=== PATIENT | male | born 1965 | race Caucasian/White ===

== ENCOUNTER 2018-01-31 03:13 | Emergency (ER) | payer MEDICARE ==
--- NOTE | 2018-01-31 03:15 | EDM.PDOC ---
ED HPI GENERAL MEDICAL PROBLEM - General Chief Complaint: Skin Complaint Stated Complaint: [facility] Time Seen by Provider: 01/31/18 03:15 Source of Information: Reports: Patient History Limitations: Reports: No Limitations - History of Present Illness INITIAL COMMENTS - FREE TEXT/NARRATIVE: 62-year-old male arrives in the ED per ambulance from a local gas station worries been hold off for the last 3-4 days. 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 Pilocar is broken at present time being repaired. Therefore is been sitting around the gas station at [facility] for the last 3 days. Patient is a type II diabetic controlled with oral medications and diet. He has chronic dependent edema states he wears compression stockings. He called EMS tonight because of increasing weakness feeling like he could see right anterior right and trouble breathing. He is concerned he may be septic from the lesion that is draining purulent material from his perianal area. Paramedics report that his initial O2 sats were 79% on room air. He was so weak it took 4 of them to get him out of the vehicle where he is sleeping and into the ambulance. He appears drowsy. Initial BP was 106 systolic. This is much lower than his norm. Of note he is afebrile. He apparently is on Coumadin as he has had previous DVT right leg. Onset: Today Onset Date: 01/31/18 Duration: Hour(s): Location: Reports: Chest, Other (Short of breath lightheaded dizzy with visual changes and auditory changes.) Quality: Reports: Other (Generalized weakness) Severity: Severe Improves with: Reports: Other (Feels better since he got oxygen applied and IV fluid bolus.) Worsens with: Reports: Movement Context: Denies: Activity, Exercise, Lifting, Sick Contact, Trauma, Other Associated Symptoms: Reports: Confusion, Cough, Diaphoresis, Loss of Appetite, Malaise, Shortness of Breath, Weakness (Severe generalized weakness. He could' ve got out of the car on his own volition.). 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: Reports: Other (see below) (None.) Perineal Area Pain Score (Numeric/FACES): 7 - Related Data Allergies Allergy/AdvReac Type Severity Reaction Status Date / Time No Known Allergies Allergy Verified 01/31/18 03:20 Home Meds: Home Meds Benazepril HCl [Lotensin] 40 mg PO DAILY 01/31/18 [History] Diltiazem [Dilacor XR] 240 mg PO DAILY 01/31/18 [History] Fenofibrate 54 mg PO DAILY 01/31/18 [History] Gabapentin [Neurontin] 600 mg PO BID 01/31/18 [History] Hydrochlorothiazide 25 mg PO DAILY 01/31/18 [History] Levothyroxine 125 mcg PO DAILY 01/31/18 [History] Nateglinide 120 mg PO BID 01/31/18 [History] Omeprazole 40 mg PO ACBREAKFAST 01/31/18 [History] Pravastatin Sodium 80 mg PO DAILY 01/31/18 [History] Warfarin [Coumadin] 7.5 mg PO DAILY 01/31/18 [History] glipiZIDE [Glucotrol XL] 20 mg PO ACBREAKFAST 01/31/18 [History] metFORMIN [Glucophage XR] 1,000 mg PO BID 01/31/18 [History] traMADol [Ultram] 50 - 100 mg PO BID PRN 01/31/18 [History] Past Medical History Respiratory History: Reports: COPD (Smokes 1-2 packs of cigarettes per day.) Endocrine/Metabolic History: Reports: Diabetes, Type II (Controlled with diet and oral medications.), Obesity/BMI 30+ Social & Family History - Living Situation & Occupation Social History Comment: 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 ED ROS GENERAL - Review of Systems Review Of Systems: See Below Constitutional: Reports: Malaise, Weakness, Fatigue. Denies: Fever, Chills HEENT: Reports: Hearing Loss (I'm in trouble hearing earlier tonight as well. Likely due to hypotension), Vision Change (Blurred vision tonight couldn't focus well.) Respiratory: Reports: Shortness of Breath, Wheezing, Cough. Denies: Pleuritic Chest Pain, Hemoptysis (Coughs up brown sputum once in a while) Cardiovascular: Reports: Blood Pressure Problem, Dyspnea on Exertion (Chronic dependent edema. Wears SAHARA stockings all the time. 3.), Edema. Denies: Chest Pain, Claudication, Lightheadedness, Orthopnea Endocrine: Reports: Fatigue, High Glucose (Nondiabetic doesn't check his sugars all that often) GI/Abdominal: Reports: Constipation (Some issues with constipation) : Reports: Frequency, Other (Nocturia usually 3 or 4 known BPH.) Musculoskeletal: Reports: Back Pain, Joint Pain (Knees hips neck and shoulders at times.) Skin: Reports: Other (Patient has a draining abscess left perianal area. He states that it became painful and swollen about 4 days ago and about 2 days ago it spontaneously erupted and started draining very foul-smelling discharge.) Neurological: Reports: Dizziness (Tonight he was quite dizzy and), Difficulty Walking, Weakness Psychiatric: Reports: No Symptoms Hematologic/Lymphatic: Reports: No Symptoms Immunologic: Reports: No Symptoms ED EXAM, SKIN/RASH Exam: See Below Exam Limited By: Other (Appears very ill. He is afebrile. BP is 93/49 with O2 sats of 90% on 4 L.) General Appearance: Lethargic (Very ill in appearance), Other Eye Exam: Bilateral Eye: Normal Inspection Throat/Mouth: Other Head: Atraumatic, Normocephalic (Tongue and mouth appeared dry tongue is coated) Neck: Normal Inspection, Supple, Limited Range of Motion. No: Carotid Bruit, Lymphadenopathy (L), Lymphadenopathy (R) Respiratory/Chest: Respiratory Distress (He is not tachypnea but he is definitely hypoxic.), Decreased Breath Sounds (Marichuy she is diminished to the lower 20% of lung sigala bilaterally.), Crackles ( and rhonchi throughout all lung sigala I believe in both bases. ), Rhonchi (Diffuse wheezing throughout all lung sigala), Wheezing Cardiovascular: Regular Rate, Rhythm, No Gallop, No Murmur (Heart sounds are difficult to hear because of his overlying wheezes.), No Rub, JVD (3 cm below the angle of the mandible.), Other (Pulses are not palpable below the femorals due to edema.) Peripheral Pulses: 0: Posterior Tibial (L) (No palpable due to severe edema of the lower extremities), Posterior Tibial (R), Dorsalis Pedis (L), Dorsalis Pedis (R) GI/Abdominal: Abnormal Bowel Sounds, Other (Class and bowel sounds grossly obese. This limits ability to palpate any solid organs. Question of ascites.) Rectal (Males) Exam: Other (Patient has a perianal infected process on the left buttock. It is approximately 5 cm in diameter with a necrotic center. It is draining purulent material with smell of anaerobes.) Back Exam: Normal Inspection Extremities: Pedal Edema (4+ pitting edema both lower extremities.) Neurological: Alert, Oriented, CN II-XII Intact, Normal Cognition, Other. No: Normal Gait Psychiatric: Normal Affect Skin: Warm, Dry, Other (Skin lesion left buttock perianally as discussed above. Of note cultures were obtained from the wound both aerobic and anaerobic.) Location, Skin: Perirectal (Left perirectal abscess proximal be 5 cm in diameter with induration increased warmth palpation. The center is becoming ulcerated and necrotic and is losing purulent material with strong anaerobic smell.) EKG INTERPRETATION EKG Date: 01/31/18 Time: 03:30 Rhythm: NSR Rate (Beats/Min): 74 [place]: LAD-Left [place] Deviation (-26) P-Wave: Present QRS: RBBB (Incomplete right bundle branch block) ST-T: Other (Early R-wave transition in V3. Consider septal hypertrophy pattern there is a diffuse early repolarization pattern.) QT: Prolonged (Mildly prolonged) EKG Interpretation Comments: Abnormal ECG Course - Vital Signs Last Recorded V/S: Last Vital Signs Temp 36.6 C 01/31/18 04:00 Pulse 68 01/31/18 04:28 Resp 16 01/31/18 04:28 BP 95/43 L 01/31/18 04:28 Pulse Ox 95 01/31/18 04:28 - Orders/Labs/Meds Orders: Active Orders 24 hr Category Date Time Status Blood Glucose Check, Bedside [RC] ONETIME Care 01/31/18 03:22 Active EKG Documentation Completion [RC] STAT Care 01/31/18 03:21 Active Oxygen Therapy [RC] ASDIRECTED Care 01/31/18 03:22 Active RT Aerosol Therapy [RC] ASDIRECTED Care 01/31/18 03:30 Active Chest 1V Frontal [CR] Stat Exams 01/31/18 03:21 Taken CULTURE ANAEROBIC + SMEAR [RM] Stat Lab 01/31/18 03:35 Received CULTURE BLOOD [BC] Stat Lab 01/31/18 03:40 Received CULTURE BLOOD [BC] Stat Lab 01/31/18 03:53 Received CULTURE WOUND [RM] Stat Lab 01/31/18 03:30 Received Norepinephrine [Levophed] 4 mg Med 01/31/18 04:45 Active Dextrose 5% in Water 246 ml IV TITRATE Sodium Chloride 0.9% [Normal Saline] 1,000 ml Med 01/31/18 03:30 Active IV ASDIRECTED Sodium Chloride 0.9% [Normal Saline] 1,000 ml Med 01/31/18 04:30 Active IV ASDIRECTED Vancomycin 1 gm Med 01/31/18 05:13 Active Sodium Chloride 0.9% [Normal Saline] 250 ml IV ONETIME Vancomycin 1 gm Med 01/31/18 05:13 Active Sodium Chloride 0.9% [Normal Saline] 250 ml IV ONETIME Blood Culture x2 Reflex Set [OM.PC] Stat Oth 01/31/18 03:22 Ordered Medication Orders Sodium Chloride (Normal Saline) 1,000 mls @ 999 mls/hr IV ASDIRECTED TAMRA Last Admin: 01/31/18 03:24 Dose: 999 mls/hr Sodium Chloride (Normal Saline) 1,000 mls @ 999 mls/hr IV ASDIRECTED TAMRA Last Admin: 01/31/18 04:27 Dose: 999 mls/hr Norepinephrine Bitartrate 4 mg (/ Dextrose/Water) 250 mls @ 30 mls/hr IV TITRATE [facility]; Protocol Vancomycin HCl 1 gm/ Sodium (Chloride) 250 mls @ 250 mls/hr IV ONETIME ONE Stop: 01/31/18 06:12 Vancomycin HCl 1 gm/ Sodium (Chloride) 250 mls @ 250 mls/hr IV ONETIME ONE Stop: 01/31/18 06:12 Last Admin: 01/31/18 05:18 Dose: 250 mls/hr Labs: Laboratory Tests 01/31/18 01/31/18 01/31/18 Range/Units 03:22 03:29 03:40 WBC 20.19 H (4.23-9.07) K/mm3 RBC 3.55 L (4.63-6.08) M/mm3 Hgb 10.7 L (13.7-17.5) gm/L Hct 34.0 L (40.1-51.0) % MCV 95.8 H (79.0-92.2) fl MCH 30.1 (25.7-32.2) pg MCHC 31.5 L (32.2-35.5) g/dl RDW Std Deviation 51.0 H (35.1-43.9) fL Plt Count 232 (163-337) K/mm3 MPV 10.9 (9.4-12.3) fl Neutrophils % (Manual) 81 H (40-60) % Band Neutrophils % 0 (0-10) % Lymphocytes % (Manual) 10 L (20-40) % Atypical Lymphs % 0 % Monocytes % (Manual) 9 (2-10) % Eosinophils % (Manual) 0 L (0.8-7.0) % Basophils % (Manual) 0 L (0.2-1.2) Platelet Estimate Adequate RBC Morph Comment Normal PT (9.5-12.1) SECONDS INR D-Dimer, Quantitative (0.19-0.50) mg/L Puncture Site Rt radial ABG pH 7.31 L (7.35-7.45) ABG pCO2 48.1 H (35.0-45.0) mmHg ABG pO2 59.0 L (80.0-100.0) mmHg ABG HCO3 23.6 (22.0-26.0) meq/L ABG O2 Saturation 88.6 L (96.0-97.0) % ABG Base Excess -2.2 L (-2-2.0) Trever Test Positive A-a Gradient 15 mmHg O2 Delivery Device Room air Oxygen Flow Rate 0.0 FiO2 21.00 (21.00-100.00) % Sodium (136-145) mEq/L Potassium (3.5-5.1) mEq/L Chloride (98-107) mEq/L Carbon Dioxide (21-32) mEq/L Anion Gap (5-15) BUN (7-18) mg/dL Creatinine (0.7-1.3) mg/dL Est Cr Clr Drug Dosing mL/min Estimated GFR (MDRD) (>60) mL/min BUN/Creatinine Ratio (14-18) Glucose (80-115) mg/dL POC Glucose 272 H (80-115) mg/dL Lactic Acid (0.4-2.0) mmol/L Calcium (8.5-10.1) mg/dL Magnesium (1.8-2.4) mg/dl Total Bilirubin (0.2-1.0) mg/dL AST (15-37) U/L ALT (16-63) U/L Alkaline Phosphatase (46-116) U/L Troponin I (0.00-0.056) ng/mL C-Reactive Protein (<1.0) mg/dL NT-Pro-B Natriuret Pep (0-125) pg/mL Total Protein (6.4-8.2) g/dl Albumin (3.4-5.0) g/dl Globulin gm/dL Albumin/Globulin Ratio (1-2) TSH 3rd Generation (0.358-3.74) uIU/mL 01/31/18 01/31/18 01/31/18 Range/Units 03:40 03:40 03:40 WBC (4.23-9.07) K/mm3 RBC (4.63-6.08) M/mm3 Hgb (13.7-17.5) gm/L Hct (40.1-51.0) % MCV (79.0-92.2) fl MCH (25.7-32.2) pg MCHC (32.2-35.5) g/dl RDW Std Deviation (35.1-43.9) fL Plt Count (163-337) K/mm3 MPV (9.4-12.3) fl Neutrophils % (Manual) (40-60) % Band Neutrophils % (0-10) % Lymphocytes % (Manual) (20-40) % Atypical Lymphs % % Monocytes % (Manual) (2-10) % Eosinophils % (Manual) (0.8-7.0) % Basophils % (Manual) (0.2-1.2) Platelet Estimate RBC Morph Comment PT 54.9 H* (9.5-12.1) SECONDS INR 5.20 H* D-Dimer, Quantitative (0.19-0.50) mg/L Puncture Site ABG pH (7.35-7.45) ABG pCO2 (35.0-45.0) mmHg ABG pO2 (80.0-100.0) mmHg ABG HCO3 (22.0-26.0) meq/L ABG O2 Saturation (96.0-97.0) % ABG Base Excess (-2-2.0) Trever Test A-a Gradient mmHg O2 Delivery Device Oxygen Flow Rate FiO2 (21.00-100.00) % Sodium 137 (136-145) mEq/L Potassium 5.4 H (3.5-5.1) mEq/L Chloride 102 (98-107) mEq/L Carbon Dioxide 26 (21-32) mEq/L Anion Gap 14.4 (5-15) BUN 50 H (7-18) mg/dL Creatinine 4.9 H (0.7-1.3) mg/dL Est Cr Clr Drug Dosing 16.72 mL/min Estimated GFR (MDRD) 12 (>60) mL/min BUN/Creatinine Ratio 10.2 L (14-18) Glucose 297 H (80-115) mg/dL POC Glucose (80-115) mg/dL Lactic Acid 1.5 (0.4-2.0) mmol/L Calcium 8.1 L (8.5-10.1) mg/dL Magnesium 1.6 L (1.8-2.4) mg/dl Total Bilirubin 0.9 (0.2-1.0) mg/dL AST 29 (15-37) U/L ALT 30 (16-63) U/L Alkaline Phosphatase 167 H (46-116) U/L Troponin I < 0.017 (0.00-0.056) ng/mL C-Reactive Protein 22.5 H* (<1.0) mg/dL NT-Pro-B Natriuret Pep (0-125) pg/mL Total Protein 6.3 L (6.4-8.2) g/dl Albumin 1.9 L (3.4-5.0) g/dl Globulin 4.4 gm/dL Albumin/Globulin Ratio 0.4 L (1-2) TSH 3rd Generation (0.358-3.74) uIU/mL 01/31/18 01/31/18 01/31/18 Range/Units 03:40 03:40 03:40 WBC (4.23-9.07) K/mm3 RBC (4.63-6.08) M/mm3 Hgb (13.7-17.5) gm/L Hct (40.1-51.0) % MCV (79.0-92.2) fl MCH (25.7-32.2) pg MCHC (32.2-35.5) g/dl RDW Std Deviation (35.1-43.9) fL Plt Count (163-337) K/mm3 MPV (9.4-12.3) fl Neutrophils % (Manual) (40-60) % Band Neutrophils % (0-10) % Lymphocytes % (Manual) (20-40) % Atypical Lymphs % % Monocytes % (Manual) (2-10) % Eosinophils % (Manual) (0.8-7.0) % Basophils % (Manual) (0.2-1.2) Platelet Estimate RBC Morph Comment PT (9.5-12.1) SECONDS INR D-Dimer, Quantitative 1.13 H (0.19-0.50) mg/L Puncture Site ABG pH (7.35-7.45) ABG pCO2 (35.0-45.0) mmHg ABG pO2 (80.0-100.0) mmHg ABG HCO3 (22.0-26.0) meq/L ABG O2 Saturation (96.0-97.0) % ABG Base Excess (-2-2.0) Trever Test A-a Gradient mmHg O2 Delivery Device Oxygen Flow Rate FiO2 (21.00-100.00) % Sodium (136-145) mEq/L Potassium (3.5-5.1) mEq/L Chloride (98-107) mEq/L Carbon Dioxide (21-32) mEq/L Anion Gap (5-15) BUN (7-18) mg/dL Creatinine (0.7-1.3) mg/dL Est Cr Clr Drug Dosing mL/min Estimated GFR (MDRD) (>60) mL/min BUN/Creatinine Ratio (14-18) Glucose (80-115) mg/dL POC Glucose (80-115) mg/dL Lactic Acid (0.4-2.0) mmol/L Calcium (8.5-10.1) mg/dL Magnesium (1.8-2.4) mg/dl Total Bilirubin (0.2-1.0) mg/dL AST (15-37) U/L ALT (16-63) U/L Alkaline Phosphatase (46-116) U/L Troponin I (0.00-0.056) ng/mL C-Reactive Protein (<1.0) mg/dL NT-Pro-B Natriuret Pep 2023 H (0-125) pg/mL Total Protein (6.4-8.2) g/dl Albumin (3.4-5.0) g/dl Globulin gm/dL Albumin/Globulin Ratio (1-2) TSH 3rd Generation 2.413 (0.358-3.74) uIU/mL 01/31/18 Range/Units 05:11 WBC (4.23-9.07) K/mm3 RBC (4.63-6.08) M/mm3 Hgb (13.7-17.5) gm/L Hct (40.1-51.0) % MCV (79.0-92.2) fl MCH (25.7-32.2) pg MCHC (32.2-35.5) g/dl RDW Std Deviation (35.1-43.9) fL Plt Count (163-337) K/mm3 MPV (9.4-12.3) fl Neutrophils % (Manual) (40-60) % Band Neutrophils % (0-10) % Lymphocytes % (Manual) (20-40) % Atypical Lymphs % % Monocytes % (Manual) (2-10) % Eosinophils % (Manual) (0.8-7.0) % Basophils % (Manual) (0.2-1.2) Platelet Estimate RBC Morph Comment PT (9.5-12.1) SECONDS INR D-Dimer, Quantitative (0.19-0.50) mg/L Puncture Site Rt radial ABG pH 7.31 L (7.35-7.45) ABG pCO2 45.1 H (35.0-45.0) mmHg ABG pO2 69.0 L (80.0-100.0) mmHg ABG HCO3 21.9 L (22.0-26.0) meq/L ABG O2 Saturation 93.9 L (96.0-97.0) % ABG Base Excess -3.9 L (-2-2.0) Trever Test Positive A-a Gradient 105 mmHg O2 Delivery Device Nasal cannula Oxygen Flow Rate 6.0 FiO2 36.00 (21.00-100.00) % Sodium (136-145) mEq/L Potassium (3.5-5.1) mEq/L Chloride (98-107) mEq/L Carbon Dioxide (21-32) mEq/L Anion Gap (5-15) BUN (7-18) mg/dL Creatinine (0.7-1.3) mg/dL Est Cr Clr Drug Dosing mL/min Estimated GFR (MDRD) (>60) mL/min BUN/Creatinine Ratio (14-18) Glucose (80-115) mg/dL POC Glucose (80-115) mg/dL Lactic Acid (0.4-2.0) mmol/L Calcium (8.5-10.1) mg/dL Magnesium (1.8-2.4) mg/dl Total Bilirubin (0.2-1.0) mg/dL AST (15-37) U/L ALT (16-63) U/L Alkaline Phosphatase (46-116) U/L Troponin I (0.00-0.056) ng/mL C-Reactive Protein (<1.0) mg/dL NT-Pro-B Natriuret Pep (0-125) pg/mL Total Protein (6.4-8.2) g/dl Albumin (3.4-5.0) g/dl Globulin gm/dL Albumin/Globulin Ratio (1-2) TSH 3rd Generation (0.358-3.74) uIU/mL Meds: Medications Generic Name Dose Route Start Last Admin Trade Name Freq PRN Reason Stop Dose Admin Sodium Chloride 1,000 mls @ 999 mls/hr 01/31/18 03:30 01/31/18 03:24 Normal Saline IV 999 mls/hr ASDIRECTED TAMRA Administration Sodium Chloride 1,000 mls @ 999 mls/hr 01/31/18 04:30 01/31/18 04:27 Normal Saline IV 999 mls/hr ASDIRECTED TAMRA Administration Norepinephrine Bitartrate 4 mg 250 mls @ 30 mls/hr 01/31/18 04:45 / Dextrose/Water IV TITRATE TAMRA Protocol 8 MCG/MIN Vancomycin HCl 1 gm/ Sodium 250 mls @ 250 mls/hr 01/31/18 05:13 Chloride IV 01/31/18 06:12 ONETIME ONE Vancomycin HCl 1 gm/ Sodium 250 mls @ 250 mls/hr 01/31/18 05:13 01/31/18 05: 18 Chloride IV 01/31/18 06:12 250 mls/hr ONETIME ONE Administration Discontinued Medications Generic Name Dose Route Start Last Admin Trade Name Freq PRN Reason Stop Dose Admin Albuterol/Ipratropium 3 ml 01/31/18 03:30 01/31/18 03:38 Duoneb 3.0-0.5 Mg/3 Ml NEB 01/31/18 03:31 3 ml ONETIME ONE Administration Clindamycin Phosphate 900 mg/ 106 mls @ 100 mls/hr 01/31/18 03:47 01/31/18 03 :58 Sodium Chloride IV 01/31/18 04:50 100 mls/hr ONETIME ONE Administration Norepinephrine Bitartrate 4 mg 250 mls @ 18.75 mls/hr 01/31/18 04:15 04:43 / Dextrose/Water IV 8 mcg/min TITRATE TAMRA 30 mls/hr Infusion 5 MCG/MIN Vancomycin HCl 2 gm/ Sodium 250 mls @ 250 mls/hr 01/31/18 04:44 Chloride IV 01/31/18 05:43 ONETIME ONE Sodium Chloride Confirm 01/31/18 05:16 01/31/18 05:31 Normal Saline Administered 01/31/18 05:17 Not Given Dose 500 mls @ as directed .ROUTE .STK-MED ONE Metoclopramide HCl 10 mg 01/31/18 04:02 01/31/18 04:11 Reglan IVPUSH 01/31/18 04:03 10 mg ONETIME ONE Administration Vancomycin HCl Confirm 01/31/18 05:16 01/31/18 05:31 Vancocin Administered 01/31/18 05:17 Not Given Dose 2 gm .ROUTE .STK-MED ONE - Radiology Interpretation Free Text/Narrative:: 62-year-old male brought to the ED per ambulance [place] local [place] stop where he has been residing a last 3-4 days. 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 He lives in sleeps in his vehicle. Patient is a type II diabetic poorly controlled. He has chronic severe dependent edema of both lower extremities and wears SAHARA stockings. He reports he can stay in his vehicle for sometime 1618 hrs. per day. He presents to the ED due to dyspnea weakness visual acuity changes and auditory changes i.e. due to hypotension. Paramedics identified him to be hypoxic with O2 sats of 79% on room air. This is likely because he is also hypo-tensive with a BP of 75/44. Is not perfusing his extremities. Cause of shock state is unclear. It is not hemorrhagic. It is either cardiovascular or sepsis in origin. He has a draining perianal abscess on his left buttock cheek which may be the culprit. He is afebrile at present time. Plan he will be treated aggressively. He is likely going to need inotropic support. Will also be started on antibiotic clindamycin 900 mg IV. Oxygen will be utilized at 4-5 L/m. He will have ABGs done as well as blood cultures 2 and cardiac markers and BNP. Given Reglan 10 mg IV for nausea relief. He looks critically ill. - Re-Assessments/Exams Free Text/Narrative Re-Assessment/Exam: 01/31/18 04:02 ABGs have returned and reveal a pH of 7.31 with PCO2 of 48.1 PO2 of 59.This was done on room air? O2 sats were 88%. Apparently he is only 89 % on 4 L/m at this time. BP is low at 72/42. He is therefore going to require inotropic support. Will be started on levo fed at 5 mcg/kg/m. Will be given Reglan 10 mg IV prophylactically for nausea relief. Unclear at this time what is causing his shock state. Cardiogenic versus sepsis without fever. ECG does not show any signs of recent ischemia. Will start him on antibiotic clindamycin 900 mg IV. Zyvox is relatively contraindicated as he is taking tramadol for pain. Is combination lowers seizure threshold and can cause serotonin syndrome. One view chest x-ray done portably shows poor inspiration. Cardiac silhouette is essentially normal. Mildly tortuous thoracic aorta. There is mild hazy infiltrate in the left lingular area which is likely vascular in origin. No pleural effusions Second intravenous line will be required. 01/31/18 04:19 O2 sats are 92% on 6 L. BP is just starting to come up at 86/54. 01/31/18 04:31 O2 sats are up to 94%. BP is now 97/40. This is on Levophed at 5 mcg/kg/m. 01/31/18 04:42 BP remains in the low 90s with sats of 92% on 6 L. Will increase the levophed to 8 mcg/kg/m. 01/31/18 04:47 Labs are starting to come back. White count is markedly elevated at 20.19 with 81% neutrophils and no bands reported. Hemoglobin is mildly low at 10.7 with hematocrit of 34.0. MCV is mildly elevated at 95.8. Platelet count is 232,000. PT is markedly elevated at 54.9. INR is 5.20 i.e. supratherapeutic. D-dimer is 1.13 secondary to infective process. Chemistry shows a sodium of 137 potassium mildly elevated at 5.4. Chloride is 102 with a bicarbonate of 26. And a gap is 14.4. BUN is 50. Creatinine is 4.9. EGFR is estimated to be 12. Stage V renal insufficiency. Glucose is 297 was 272 at the bedside. Lactic acid is 1.5. LCM 8.1 magnesium 1.6 slightly low. Liver function normal. Troponin I is less than 0.017. C-reactive protein is pending. BNP is elevated at 2022. Albumin fraction is low at 1.9. Total protein 6.3. TSH is normal at 2.4. I will try make arranges for the patient be transferred to [place] intensive care unit to manage his acute sepsis. Vancomycin 2 g will be added to his treatment plan even though he is in significant renal insufficiency of his body weight dictates a high dosage. Even at 15 mg/kg. 01/31/18 05:05: Spoke with Dr. Ambrocio at [facility] in [place] through the ED. Patient is to be sent to that facility and decision will be made about placement once he reaches the ED. Her pressure has fallen down to 106.47. 01/31/18 05:29 repeat ABGs have been completed. They essentially are unchanged with a pH of 7.31. PCO2 is slightly improved at 45.1. PO2 is 69. O2 sats are 94% . This was done on 6 L of oxygen per nasal cannula. His oxygen level currently is 97%. BP is 110/48 heart rate 77. C-reactive protein is 22.5. Departure - Departure Time of Disposition: 06:04 Disposition: DC/Tfer to Acute Hospital 02 Condition: Critical Clinical Impression: Septic shock, Renal insufficiency CHF (congestive heart failure) Qualifiers: Heart failure type: unspecified Heart failure chronicity: acute on chronic Qualified Code(s): I50.9 - Heart failure, unspecified Diabetes mellitus Qualifiers: Diabetes mellitus type: type 2 Diabetes mellitus complication status: with kidney complications Diabetes mellitus complication detail: with chronic kidney disease Chronic kidney disease stage: stage 4 (severe) Abscess of skin and subcutaneous tissue Qualifiers: Site of cutaneous abscess: buttock Qualified Code(s): L02.31 - Cutaneous abscess of buttock - Discharge Information Referrals: PCP,Not In Area [Primary Care Provider] - Forms: ED Department Discharge Critical Care Note - Critical Care Note Total Time (mins): 180 - My Orders Last 24 Hours: My Active Orders 01/31/18 03:21 EKG Documentation Completion [RC] STAT Chest 1V Frontal [CR] Stat 01/31/18 03:22 Blood Glucose Check, Bedside [RC] ONETIME Oxygen Therapy [RC] ASDIRECTED Blood Culture x2 Reflex Set [OM.PC] Stat 01/31/18 03:30 RT Aerosol Therapy [RC] ASDIRECTED CULTURE WOUND [RM] Stat Sodium Chloride 0.9% [Normal Saline] 1,000 ml IV ASDIRECTED 01/31/18 03:35 CULTURE ANAEROBIC + SMEAR [RM] Stat 01/31/18 03:40 CULTURE BLOOD [BC] Stat 01/31/18 03:53 CULTURE BLOOD [BC] Stat 01/31/18 04:30 Sodium Chloride 0.9% [Normal Saline] 1,000 ml IV ASDIRECTED 01/31/18 04:45 Norepinephrine [Levophed] 4 mg Dextrose 5% in Water 246 ml IV TITRATE 01/31/18 05:13 Vancomycin 1 gm Sodium Chloride 0.9% [Normal Saline] 250 ml IV ONETIME Vancomycin 1 gm Sodium Chloride 0.9% [Normal Saline] 250 ml IV ONETIME - Assessment/Plan Last 24 Hours: My Active Orders 01/31/18 03:21 EKG Documentation Completion [RC] STAT Chest 1V Frontal [CR] Stat 01/31/18 03:22 Blood Glucose Check, Bedside [RC] ONETIME Oxygen Therapy [RC] ASDIRECTED Blood Culture x2 Reflex Set [OM.PC] Stat 01/31/18 03:30 RT Aerosol Therapy [RC] ASDIRECTED CULTURE WOUND [RM] Stat Sodium Chloride 0.9% [Normal Saline] 1,000 ml IV ASDIRECTED 01/31/18 03:35 CULTURE ANAEROBIC + SMEAR [RM] Stat 01/31/18 03:40 CULTURE BLOOD [BC] Stat 01/31/18 03:53 CULTURE BLOOD [BC] Stat 01/31/18 04:30 Sodium Chloride 0.9% [Normal Saline] 1,000 ml IV ASDIRECTED 01/31/18 04:45 Norepinephrine [Levophed] 4 mg Dextrose 5% in Water 246 ml IV TITRATE 01/31/18 05:13 Vancomycin 1 gm Sodium Chloride 0.9% [Normal Saline] 250 ml IV ONETIME Vancomycin 1 gm Sodium Chloride 0.9% [Normal Saline] 250 ml IV ONETIME
[2018-01-31] MEDS ORDERED: Albuterol/Ipratropium 3.0-0.5 MG/3 ML Neb Soln NEB ONE (03:30)
[2018-01-31] MEDS ORDERED: Sodium Chloride 0.9% 1,000 ML IV SCH ×2 (03:30→04:30)
[2018-01-31] MEDS ORDERED: Clindamycin Phosphate 900 MG in Sodium Chloride 0.9% 100 ML IV ONE (03:47)
[2018-01-31] MEDS ORDERED: Metoclopramide 10 MG/2 ML SDV IVPUSH ONE (04:02)
[2018-01-31] MEDS ORDERED: Norepinephrine 4 MG in Dextrose 5% in Water 246 ML IV SCH ×4 (04:15→04:45)
[2018-01-31] MEDS ORDERED: Vancomycin 1 GM AdvVial ONE (05:16)
[2018-01-31] MEDS ORDERED: Sodium Chloride 0.9% 500 ML ONE (05:16)
--- NOTE | 2018-02-01 07:04 | CR ---
Chest: Portable view of the chest was obtained. Comparison: No prior chest x-ray. Heart size and mediastinum are within normal limits for portable technique. Left hemidiaphragm not well seen which is most likely due to mild left basilar atelectasis. Lungs otherwise are clear without acute parenchymal change. Bony structures are osteopenic. Impression: 1. Possible mild left basilar atelectasis. 2. Nothing acute is otherwise seen. Diagnostic code #2
== END 2018-01-31 06:20 ==
LOC: JD.ED 03:13 → EDBD 03:13 → JD.ED 06:20
DX: A41.9 Sepsis, unspecified organism (principal); R65.21 Severe sepsis with septic shock; I50.9 Heart failure, unspecified; E11.22 Type 2 diabetes mellitus with diabetic chronic kidney disease; N18.4 Chronic kidney disease, stage 4 (severe); L02.31 Cutaneous abscess of buttock; J44.9 Chronic obstructive pulmonary disease, unspecified; Z79.899 Other long term (current) drug therapy; Z79.84 Long term (current) use of oral hypoglycemic drugs
CPT/HCPCS: 36415; 36600; 71045; 80053; 82803; 82962; 83605; 83735; 83880; 84443; 84484; 85007; 85027; 85379; 85610; 86140; 87040; 87075; 87205; 93005; 94640; 96361; 96365; 96366; 96367; 96375; 99285; J2765; J3370; J7030; J7040; J7050; J7060